=== PATIENT | male | born 1990 | race Caucasian/White ===

== ENCOUNTER 2016-09-30 22:57 | Inpatient (IN) | payer MEDICAID ==
[~2016-09-30] VITALS: Ht 185.4 cm; Wt 140.2 kg
[~2016-09-30 22:57] MED LIST: DIVA500T35 PO; HALO5 PO
[2016-09-30] MEDS ORDERED: ZOLPIDEM TARTRATE 10 MG TABLET PO PRN (23:30)
[2016-09-30] MEDS ORDERED: HALOPERIDOL 5 MG TABLET PO PRN (23:30)
[2016-10-01 00:05] VITALS: BP 142/79
[2016-10-01] MEDS ORDERED: LAMO25 PO (00:11)
[2016-10-01] MEDS ORDERED: OLAN10TA3 PO ×2 (00:11)
[2016-10-01] MEDS ORDERED: ZIPR40CA2 PO (00:11)
[2016-10-01] MEDS: LORazepam 2 MG TABLET PO PRN ×2 (05:30→12:13)
[2016-10-01 08:11] VITALS: BP 139/87
[2016-10-01] MEDS: NICOTINE 21 MG/24 HOUR PATCH TD SCH (09:00)
[2016-10-01 09:03] LABS: BASOPHILS # (AUTO) 0.05 K/uL (0.00-0.20); BASOPHILS % (AUTO) 0.6 % (0.0-2.0); EOSINOPHILS % (AUTO) 2.42 % (1.0-6.0); HEMATOCRIT 44.2 % (41-53); LYMPHOCYTES # (AUTO) 2.6 K/uL (1.0-4.8); LYMPHOCYTES % (AUTO) 31.3 % (22.0-44.0); MEAN CORPUSCULAR HEMOGLOBIN 28.8 pg (26.0-34.0); MEAN CORPUSCULAR HGB CONC 33.9 G/dL (31.0-37.0); MEAN CORPUSCULAR VOLUME 85 fL (80-100); MONOCYTES # (AUTO) 0.7 K/uL (0.1-1.0); MONOCYTES % (AUTO) 8.6 % (2.0-9.0); NEUTROPHILS # (AUTO) 4.8 K/uL (1.8-7.7); NEUTROPHILS % (AUTO) 57.2 % (40.0-70.0); PLATELET COUNT (AUTO) 301 K/uL (150-450); RED BLOOD CELL COUNT(AUTO) 5.19 MIL/uL (4.50-5.90); RED CELL DISTRIBUTION WIDTH 12.9 % (11.5-14.5); WHITE BLOOD COUNT (AUTO) 8.4 K/uL (4.5-11.0)
[2016-10-01 09:33] LABS: HEMOGLOBIN A1C 5.6 % (4.5-6.2)
[2016-10-01 09:44] LABS: ALANINE AMINOTRANSFERASE 100 U/L (12-78); ALBUMIN 3.6 g/dL (3.4-5.0); ANION GAP 10 mmol/L (8-16); ASPARTATE AMINOTRANSFERASE 39 U/L (15-37); BILIRUBIN,TOTAL 0.3 mg/dL (0.1-1.0); CALCIUM, TOTAL 9.5 mg/dL (8.8-10.5); CARBON DIOXIDE 26 mmol/L (22-29); CHLORIDE 104 mmol/L (98-107); CHOL/HDL RATIO 6.4 (4.2-7.3); GLOMERULAR FILTR. RATE CALC > 60 mL/min (>60); POTASSIUM 4.2 mmol/L (3.5-5.1); SODIUM SERUM 140 mmol/L (136-145); THYROID STIMULATING HORMONE 6.11 uIU/mL (0.36-3.74); TOTAL PROTEIN, SERUM 7.3 g/dL (6.4-8.2); UREA NITROGEN, BLOOD 23 mg/dL (7-18)
[2016-10-01 16:00] VITALS: BP 142/88
[2016-10-01] MEDS: ZIPRASIDONE HCL 40 MG CAPSULE PO SCH (16:53)
[2016-10-02] MEDS: ZIPRASIDONE HCL 40 MG CAPSULE PO SCH ×2 (06:36→16:53)
[2016-10-02 06:59] VITALS: BP 120/72
[2016-10-02] MEDS: NICOTINE 21 MG/24 HOUR PATCH TD SCH (08:39)
[2016-10-02 08:46] VITALS: BP 119/62
[2016-10-02] MEDS: LORazepam 2 MG TABLET PO PRN (14:57)
[2016-10-02 16:00] VITALS: BP 134/72
[2016-10-03] MEDS: ZIPRASIDONE HCL 40 MG CAPSULE PO SCH (06:17)
[2016-10-03 06:31] VITALS: BP 106/65
[2016-10-03] MEDS: LORazepam 2 MG TABLET PO PRN (09:22)
[2016-10-03] MEDS: NICOTINE 21 MG/24 HOUR PATCH TD SCH (09:22)
[2016-10-03 09:55] VITALS: BP 119/77
== END 2016-10-03 13:47 | disposition home or self-care (01) | DRG 750 ==
LOC: B3A 23:32 → EDSTATUS 23:57
PROC: GZHZZZZ Group Psychotherapy (ICD-10-PCS; principal; 2016-10-01)
DX: F20.0 Paranoid schizophrenia (principal); R56.9 Unspecified convulsions; F17.200 Nicotine dependence, unspecified, uncomplicated; F12.90 Cannabis use, unspecified, uncomplicated; E03.9 Hypothyroidism, unspecified; Z71.51 Drug abuse counseling and surveillance of drug abuser
CPT/HCPCS: 83036; 84439; 84443; 87081